=== PATIENT | male | born 1955 | race Caucasian/White ===

== ENCOUNTER 2021-12-04 11:30 | Emergency (ER) | payer MEDICARE, OTHER, BC ==
[~2021-12-04] VITALS: Ht 174 cm; Wt 101.0 kg
[2021-12-04 11:39] VITALS: BP 142/91
[2021-12-04] MEDS ORDERED: LIDOCAINE 2% Multi-Dose 20 ML VIAL. IJ ONE (12:15)
--- NOTE | 2021-12-04 13:22 | RAD ---
XR FINGER(S)_LEFT 2+VIEWS_RT History: Reason: pinched finger in pipe stand / Spl. Instructions: / History: Pain Technique: PA view the hand and 2 additional views of the fifth digit. Comparison: None. Findings: Acute comminuted fifth distal phalanx fracture with mild displacement of fracture fragments. There is overlying soft tissue injury. Well-corticated ossification adjacent to the fifth proximal interphala ngeal joint, may relate to prior trauma or degenerative changes. No dislocation. Mild distal phalange al degenerative changes. Mild third metacarpophalangeal degenerative changes. Impression: 1. Acute comminuted fifth distal phalanx fracture with overlying soft tissue injury. Electronically signed by: Ryan Carter DO (12/04/2021 1:20 PM) [id number]
--- NOTE | 2021-12-04 13:29 | PHYS DOC ---
Past Medical History Past Medical History: No Pertinent History Past Surgical History: Appendectomy, Other Additional Past Surgical Histo: partial colectomy General Adult EDM: Chief Complaint: FINGER INJURY HPI: HPI: Patient is a 66-year-old male who presents today with a right fifth finger laceration. Patient states that he was attempting to open a pipe to stand, he said he got his finger stuck in the's legs of the stand as it was opening and smashed his finger. Patient states this happened just prior to arrival today, patient states his last tetanus shot was 2 years ago. Review of Systems: Review of Systems: Constitutional: Denies fever or chills. [] Eyes: Denies change in visual acuity. [] HENT: Denies nasal congestion or sore throat. [] Respiratory: Denies cough or shortness of breath. [] Cardiovascular: Denies chest pain or edema. [] GI: Denies abdominal pain, nausea, vomiting, bloody stools or diarrhea. [] : Denies dysuria. [] Musculoskeletal: Denies back pain or joint pain. [] Integument: Laceration to fifth finger right hand Neurologic: Denies headache, focal weakness or sensory changes. [] Endocrine: Denies polyuria or polydipsia. [] Lymphatic: Denies swollen glands. [] Psychiatric: Denies depression or anxiety. [] Heart Score: C/O Chest Pain: No Risk Factors: Risk Factors: DM, Current or recent (<one month) smoker, HTN, HLP, family history of CAD, obesity. Risk Scores: Score 0 - 3: 2.5% MACE over next 6 weeks - Discharge Home Score 4 - 6: 20.3% MACE over next 6 weeks - Admit for Clinical Observation Score 7 - 10: 72.7% MACE over next 6 weeks - Early Invasive Strategies Current Medications: Current Medications Medications (Trade) Dose Ordered Sig/Angel Start Time Stop Time Status Last Admin Dose Admin Cefazolin Sodium/ Dextrose 50 ml @ 100 mls/hr 1X ONCE 12/04/21 14:00 12/04/21 14:29 12/04/21 13:16 100 MLS/HR Lidocaine HCl (Lidocaine 2% 20ml Vial) 20 ml 1X ONCE 12/04/21 12:15 12/04/21 12:16 DC 12/04/21 12:16 20 ML Allergies: Allergies: Allergies Coded Allergies Type Severity Reaction Last Updated Verified No Known Drug Allergies 12/04/21 No Physical Exam: PE: Constitutional: Well developed, well nourished, no acute distress, non-toxic appearance. [] HENT: Normocephalic, atraumatic, bilateral external ears normal, oropharynx moist, no oral exudates, nose normal. [] Eyes: PERRLA, EOMI, conjunctiva normal, no discharge. [] Neck: Normal range of motion, no tenderness, supple, no stridor. [] Cardiovascular:Heart rate regular rhythm, no murmur [] Lungs & Thorax: Bilateral breath sounds clear to auscultation [] Abdomen: Bowel sounds normal, soft, no tenderness, no masses, no pulsatile masses. [] Skin: Distal fifth finger on the right hand has lacerations 1 on the medial and lateral aspect of the fat pad of the distal finger, as well as there is blood noted underneath the nailbed and the nail itself, nail is cracked at a diagonal but is still intact, nail matrix has no obvious injury, wound is oozing Back: No tenderness, no CVA tenderness. [] Extremities: Right fifth finger distal has appropriate and sensory is intact at the distal aspect of her finger, Neurologic: Alert and oriented X 3, normal motor function, normal sensory function, no focal deficits noted. [] Psychologic: Affect normal, judgement normal, mood normal. [] Current Patient Data: Vital Signs: Vital Signs Date Time Temp Pulse Resp B/P (MAP) Pulse Ox O2 Delivery O2 Flow Rate FiO2 12/04/21 11:39 97.6 90 16 142/91 (108) 96 Room Air 97.6 EKG: EKG: [] Radiology/Procedures: Radiology/Procedures: REASON: pinched finger in pipe stand PROCEDURE: FINGER(S) LEFT XR FINGER(S)_LEFT 2+VIEWS_RT History: Reason: pinched finger in pipe stand / Spl. Instructions: / History: Pain Technique: PA view the hand and 2 additional views of the fifth digit. Comparison: None. Findings: Acute comminuted fifth distal phalanx fracture with mild displacement of fracture fragments. There is overlying soft tissue injury. Well-corticated ossification adjacent to the fifth proximal interphalangeal joint, may relate to prior trauma or degenerative changes. No dislocation. Mild distal phalangeal degenerative changes. Mild third metacarpophalangeal degenerative changes. Impression: 1. Acute comminuted fifth distal phalanx fracture with overlying soft tissue injury. Electronically signed by: Ryan Carter DO (12/04/2021 1:20 PM) [id number] . Indication: Lacerations to distal right fifth finger Procedure: Digital block was performed on the patient's right fifth finger, using 2% lidocaine 5 mL, after appropriately anesthetizing the fifth finger area was assessed, area was irrigated with approximately 180 mL of normal saline, wound was cleansed with Betadine solution, on the medial aspect wound which is approximately 1 cm in length there were 4 interrupted sutures placed to bring the wound together using 5-0 Ethilon, there was a small 2 mm laceration on the center of the fat pad, 1 suture using 5-0 Ethilon was placed, on the medial aspect of the finger where a 1 cm laceration was evident, 3 interrupted sutures using 5-0 Ethilon were placed. I did loosen the nail from the nailbed, I used 1 interrupted suture with 5-0 Ethilon to keep the nail in place, iodoform gauze was placed on the wound and tube gauze dressing was applied by the nursing staff. Total repaired wound length: see procedure note The patient tolerated the procedure well [] Course & Med Decision Making: Course & Med Decision Making Pertinent Labs and Imaging studies reviewed. (See chart for details) Sutures were placed in dressing on the right fifth finger was applied by nursing staff, patient is to leave the current dressing in place for the next 24 hours then remove cleanse wound twice daily with mild soap and water keeping the wound covered along with applying a fingertip foam aluminum splint to keep the tip protected. Patient is to follow-up with Dr. Dias who is orthopedic doctor on- call whom I spoke with earlier and she will see the patient in follow-up for further evaluation and management of this injury. Patient verbalizes understanding of this and is agreeable with the plan of care. Patient will also be given a prescription for cephalexin patient at this time declined any opioid medication for pain. Dragon Disclaimer: Dragon Disclaimer: This electronic medical record was generated, in whole or in part, using a voice recognition dictation system. Departure Departure Impression: Primary Impression: Finger fracture, right Qualified Codes: S62.666B - Nondisplaced fracture of distal phalanx of right little finger, initial encounter for open fracture Additional Impression: Laceration of finger of right hand with damage to nail Qualified Codes: S61.316A - Laceration without foreign body of right little finger with damage to nail, initial encounter Disposition: HOME / SELF CARE / HOMELESS Condition: STABLE Referrals: UNKNOWN PCP NAME (PCP) MELBA DIAS MD Patient Instructions: Finger Fracture, Fingertip Laceration Additional Instructions: Cephalexin 500 mg take 1 tablet twice daily for 10 days Tylenol and/or ibuprofen as needed for pain Leave current dressing in place for the next 24 hours then remove, cleanse the wound twice daily with mild soap and water watching for any signs and symptoms of infection Follow-up with Dr. Dias calling her tomorrow for an appointment early next week she is expecting your call for further evaluation and management of this injury Return to the emergency department should you develop a fever or signs and symptoms of infection which may include swelling, redness, drainage, or increased warmth in the wound Scripts Cephalexin (CEPHALEXIN) 500 Mg Tablet 1 CAP PO BID, #[id number] CAP Prov: STAN MARCH [employer] DEVELOPER 12/04/21 STAN MARCH [employer] DEVELOPER December 04, 2021 13:29
[2021-12-04] MEDS ORDERED: CEPH500T PO (15:19)
== END 2021-12-04 15:50 | disposition home or self-care (01) ==
LOC: ER 11:30
DX: S62.666B Nondisplaced fracture of distal phalanx of right little finger, initial encounter for open fracture (principal); S61.316A Laceration without foreign body of right little finger with damage to nail, initial encounter; Y93.89 Activity, other specified; X58.XXXA Exposure to other specified factors, initial encounter; Y92.89 Other specified places as the place of occurrence of the external cause; Y99.8 Other external cause status
CPT/HCPCS: 12002; 73140; 96365; 99284; J0690